=== PATIENT | female | born 1990 | race Caucasian/White ===

== ENCOUNTER 2019-06-14 23:41 | Emergency (ER) | payer OTHER ==
--- NOTE | 2019-06-15 00:05 | PDOC ---
History of Present Illness - General Chief Complaint: Rash Stated Complaint: RASH Time Seen by Provider: 06/15/19 00:05 History Source: Patient Exam Limitations: No Limitations - History of Present Illness Initial Comments: 28 year old female with no PMH, up to date on vaccinations presented to ED for spreading generalized body rash associated with itching. Pt denied fever, chills , vomiting, shortness of breath, conjunctivitis, rhinorrhea, or any other symptoms. Pt moved to the [facility] x2 days ago from , she reported [place] was [place] that her rash was a virus, but it has been getting worse. ROS General: denied fever, chills, generalized weakness. HEENT: denied sore throat, rhinorrhea, ear pain. Cardiovascular: denied chest pain, palpitations, syncope, diaphoresis. Respiratory: denied shortness of breath, cough, sputum production, hemoptysis. Gastrointestinal: denied abdominal pain, nausea, vomiting, diarrhea, constipation, blood in stool. Genitourinary: denied dysuria, increased urinary frequency, hematuria, urinary incontinence, flank pain. Back: denied back pain. Musculoskeletal: denied joint pain, muscle pain, joint swelling. Neurological: denied headache, dizziness, numbness, tingling, weakness. Integumentary: admitted to [facility]. denied laceration, abrasion. Hematologic/Lymphatic: denied bruising or bleeding. PE Constitutional: Well-nourished, Well-developed, appearing stated age. HEENT: head is normocephalic, atraumatic. EOMI. PERRLA. no airway swelling. no uvular swelling. uvula midline. no koplik spots. Neck: supple. Full ROM. Cardiovascular: regular heart rhythm. no murmurs. no pericardial friction rub. Respiratory: clear to auscultation bilaterally. no crackles, rhonchi or wheezing. no stridor. Gastrointestinal: soft, nontender. normal bowel sounds. no rebound, guarding, masses. Extremities: peripheral pulses intact. no lower extremity edema. Neurological: CN 2-12 grossly intact. moves all four extremities. Psych: awake, alert, oriented x3. follows commands. answers questions appropriately. Skin: diffuse papular erythematous non-blanching rash to the right abdomen, bilateral groin, left sided back, right sided chest. Past History - Past Medical History Allergies/Adverse Reactions: Allergies Allergy/AdvReac Type Severity Reaction Status Date / Time aspirin Allergy Verified 06/15/19 00:09 Medical Decision Making - Medical Decision Making 28 year old female with above PMH presented to ED for generalized itchy rash. Initial Vital Signs Temp Pulse Resp BP Pulse Ox 97.1 F L 73 18 109/69 100 06/15/19 00:07 06/15/19 00:07 06/15/19 00:07 06/15/19 00:07 06/15/19 00:07 Afebrile. No tachycardia. No tachypnea. No hypotension. No hypoxia on room air. Labs ordered: none Medications ordered: Benadryl 25 mg PO once Imaging ordered: none Pt is hemodynamically stable, able to follow up outpatient with Dermatology. Pt needs PCP, referral for [facility] given. Pt discharged. Advised to take Benadryl for itching. *DC/Admit/Observation/Transfer Diagnosis at time of Disposition: Rash - Discharge Dispostion Disposition: HOME Condition at time of disposition: Stable Decision to Admit order: No - Referrals Referrals: Laury Mark MD [Staff Physician] - - Patient Instructions Printed Discharge Instructions: DI for Rash Additional Instructions: Follow up with a primary care doctor within 3 days. Your care is not complete until you follow up. I have provided you with a referral. Follow up with a erector operator within 3 days. Your care is not complete until you follow up. I have provided you with a referral. Take Benadryl at night for itching. Take over the counter, take as advised on label. Take Tylenol and/or motrin over the counter for pain. Take as advised on label. Return to the Emergency Department for fever, vomiting, shortness of breath, chest pain, lightheadedness or any other new, worsening or concerning symptoms. - Post Discharge Activity
[2019-06-15 00:09] VITALS: BP 109/69; PULSE 73; TEMP 97.1; BMI 19.3
--- NOTE | 2019-06-15 00:29 | PDOC ---
Attending Attestation - Resident Resident Name: Dennise Frazier - ED Attending Attestation I have performed the following: I have examined & evaluated the patient, The case was reviewed & discussed with the resident, I agree w/resident's findings & plan, Exceptions are as noted - HPI HPI: 06/15/19 00:33 28 yo female from [place] p/w a rash she has had for 2 weeks - Physicial Exam PE: 06/15/19 00:[address] Frazier - Medical Decision Making 06/15/19 00:35 pt saw a archeologist while [place] and the pt 's main complaint is that at night time she has difficulty sleeping because of itching recommended benadryl at nighttime and follow up with Dr Laury Mark
[2019-06-15] MEDS ORDERED: diphenhydrAMINE HCL 25 MG CAPSULE (FP) PO ONE ×2 (00:30→00:31)
== END 2019-06-15 01:02 | disposition home or self-care (01) ==
LOC: JER 23:41
DX: R21 Rash and other nonspecific skin eruption (principal)
CPT/HCPCS: 99281-25